=== PATIENT | female | born 1945 | race Caucasian/White ===

== ENCOUNTER 2017-11-07 14:19 | Inpatient (IN) | payer MEDICARE, OTHER ==
[~2017-11-07 14:19] MED LIST: ISOVUE-370 76%-LOCM 1 ML ONE
[2017-11-07] MEDS ORDERED: Labetalol HCl 100 MG/20 ML VIAL ONE (17:46)
--- NOTE | 2017-11-07 18:36 | CT ---
CT THORAX WITH IV CONTRAST: CT ABDOMEN AND PELVIS WITH IV CONTRAST: 11/07/2017 HISTORY: Malignancy. The patient failed dysphagia study. Altered mental status. New lung cancer finding. COMPARISON: None available. FINDINGS: THORAX: Enumerable noncalcified pulmonary nodules are seen throughout the lungs bilaterally, with a larger mass seen within the left lower lobe, measuring 5.1 cm, with a central area of decreased atten uation, which may be related to a central area of necrosis. There are enlarged, as well as increased number of mediastinal lymph nodes. The largest precarinal l ymph node measures 1.9 cm in short axis dimension, with an enlarged left paratracheal lymph node that is in the region of the AP window, measuring approximately 2.1 cm. There is also a soft tissue dens ity seen posterior to the left hilum, some of which is probably related to lymphadenopathy, in additi on to a parenchymal lung mass and a pulmonary nodule. There is a small, approximately 9 mm soft tissue nodule seen within the lateral aspect of the lower l eft breast, in addition to a smaller nodule within the more superior aspect of the right breast, whic h is difficult to characterize on CT imaging. There are also a few tiny nodules involving the left c hest, just inferomedial to the left breast, as well as the lateral left chest. There is a larger sub cutaneous nodule seen within the subcutaneous soft tissues of the upper abdomen, anterior to the leve l of the left hepatic lobe, measuring 1.8 cm. Vascular calcifications are seen in the thoracic aorta. 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 ABDOMEN AND PELVIS: There is generalized heterogeneity of the liver. There is a heterogeneous mass seen in the dome of the liver, measuring 3.9 cm, with a hypodense mass seen within the medial aspect of the right hepatic lobe, measuring 3.6 cm, with a few other smaller, subcentimeter, hypodense lesio ns in the right hepatic lobe. There is a slight nonspecific nodular area of thickening involving the lateral limb of the right adre nal gland. This may be within normal limits for the patient, as opposed to an actual adrenal nodule. A subcentimeter, owa-scyeq-vi-characterize, hypodense lesion is seen in the mid portion of the right kidney. The spleen, pancreas, left adrenal glands, and left kidney demonstrate a normal CT appearance. A Mireles catheter is present in the urinary bladder. Gas is present in the urinary bladder, likely re lated to catheterization. The uterus is small in size. Decreased attenuation is seen in the region of the endometrial canal. A tiny amount of fluid in the endometrial canal cannot be excluded, but th is is difficult to definitely determine based on CT evaluation. There is a lytic destructive lesion involving the left acetabulum and supra-acetabular region with ad jacent soft tissue density, consistent with a metastatic lesion. There is also cortical lucency and irregularity involving the subtrochanteric region of the right proximal femur, consistent with a meta static lesion involving the proximal right femur. There is a sclerotic lesion involving the right iliac bone, probably related to a prominent bone tiny nd. IMPRESSION: 1. Diffuse metastatic disease with multiple bilateral pulmonary nodules, mediastinal lymphadenopathy , hepatic lesions, and lytic lesions involving the proximal right femur and the left acetabulum and s upra-acetabular region. 2. Subcutaneous nodules, probably related to metastatic lesions as well, with a small nodular densit y within the right breast; however, this could be better evaluated with mammography. The largest sub cutaneous nodule is seen in the anterior abdomen, to the right of midline, measuring 1.8 cm. POS: [facility]
[2017-11-07] MEDS ORDERED: Sodium Chloride 0.9% 1,000 ML IV SCH (20:30)
[2017-11-07 21:24] VITALS: BMI 26.4
[2017-11-07] MEDS ORDERED: Ondansetron ODT 4 MG TAB PO PRN (23:19)
[2017-11-08] MEDS ORDERED: hydrALAZINE 20 MG/ML VIAL SLOW IVP SCH (03:45)
[2017-11-08 04:38] LABS: #Eosinphils 0.1 thou/uL (0.0-0.7); #Lymphocytes 1.9 thou/uL (1.20-3.40); #Monocytes 0.9 thou/uL (0.11-0.59); #Neutrophils 10.9 thou/uL (1.40-6.50); %Basophils 0.2 % (0.0-1.0); %Eosinophils 0.4 % (0.0-10.0); %Lymphocytes 13.8 % (21.0-51.0); %Monocytes 6.6 % (0.0-10.0); %Neutrophils 78.9 % (42.0-75.0); Hemoglobin 13.2 g/dL (12.0-16.0); Mean Corpuscular HGB CONC 33.1 g/dL (32.0-36.0); Mean Corpuscular Hemoglobin 29.6 pg (27.0-31.0); Mean Corpuscular Volume 89.4 fL (78.0-98.0); Mean Platelet Volume 6.6 fL (7.4-10.4); Platelet Count 315 thou/uL (130-400); RBC Distribution Width 12.1 % (11.5-14.5); Red Blood Cell (RBC) Count 4.47 mill/uL (4.20-5.40); White Blood Cell (WBC) Count 13.9 thou/uL (4.8-10.8)
[2017-11-08 04:48] LABS: Anion Gap 14 mmol/L (10-20); BUN (Urea Nitrogen) 16 mg/dL (9.8-20.1); Calc. Creatinine Clearance 86 mL/min (70-130); Calcium 10.9 mg/dL (7.8-10.44); Carbon Dioxide 32 mmol/L (23-31); Chloride 102 mmol/L (98-107); Estimated GFR-MDRD 89; Glucose 107 mg/dL (83-110); Sodium 145 mmol/L (136-145)
[2017-11-08 04:53] LABS: Potassium 2.5 mmol/L (3.5-5.1)
[2017-11-08] MEDS ORDERED: Potassium Chloride 40 MEQ in Sodium Chloride 0.9% 250 ML 250 ML IVPB SCH (06:00)
--- NOTE | 2017-11-08 06:36 | HP ---
CHIEF COMPLAINT: Patient transferred for possible metastatic cancer. HISTORY OF PRESENT ILLNESS: This patient is a 72-year-old female who was in generally good health an d had not seen a physician in the prior 20 years according to her . The patient's hel ped with the history because of the patient's situation. He reports that in July, she started havin g some loss of her voice in general. Subsequently, she developed some pain in her legs, indicating m ore in the thigh areas. She was able to function with this, but about 3 weeks ago, this became more severe. She stopped walking and stopped eating generally. About 1 week ago, she started developing some confusion. He took her to the [facility] Emergency Department today for seth luation. While there, the patient had a chest x-ray concerning for possible metastatic disease. She also had a CT scan of the head, also concerning for metastatic disease. The [facility] ER spoke with Dr. Daniels who recommended she be transferred to this facility. Here, the pat ient has denied any fevers, chills, nausea, vomiting, or abdominal pain, although she does have some difficulty swallowing. reports she is coughing and choking frequently when trying to eat. REVIEW OF SYSTEMS: Otherwise, difficult to obtain because of the patient's mental status. PAST MEDICAL HISTORY: None. PAST SURGICAL HISTORY: None. FAMILY HISTORY: The patient's mother of cancer. SOCIAL HISTORY: The patient quit smoking about 25 years ago, but was never a heavy smoker. MEDICATIONS: None. ALLERGIES: None. PHYSICAL EXAMINATION: VITAL SIGNS: Temperature was 97.7, pulse 85, respirations 16, O2 sat 95% on 3 liters nasal cannula. Her original BP was 168/74. GENERAL APPEARANCE: Age-appropriate female. She is in no distress. She is awake. She is alert and she is conversant. She is somewhat hard of hearing and does have a slightly altered voice which is slightly hypophonic. All this makes it a bit difficult to fully communicate with the patient. HEENT: PERRL. No OP lesions. Very dry oral mucosa. NECK: Supple and symmetric. HEART: Regular rate and rhythm without murmurs, gallops, or rubs. LUNGS: Clear to auscultation bilaterally with good chest wall expansion and air exchange. ABDOMEN: Soft, nontender, nondistended. Positive bowel sounds. No masses, no organomegaly. EXTREMITIES: Warm and dry without edema. She does appear to have some slight tenderness to palpatio n in both upper legs. NEUROLOGIC: As above. The patient is difficult to communicate, but appears to be slightly confused. IMAGING: CT scan of the abdomen and pelvis reveals diffuse metastatic disease with multiple bilatera l pulmonary nodules, mediastinal lymphadenopathy, hepatic lesions and lytic lesions involving the pro ximal right femur and left acetabulum and supra-acetabular region. There are subcutaneous nodules, p robably related to metastatic lesions as well with a small nodular density in the right breast and a subcutaneous nodule in the anterior abdomen to the right of midline measuring 1.8 cm. IMPRESSION AND PLAN: 1. The patient has apparent metastatic disease. Primary is unknown. Her CT scan at [place] appears to show some metastases to the brain as well as her CT showing metastases to multiple areas including subcutaneous tissue of liver and lungs. An MRI has been requested by Oncology and that radha l be obtained. In the interim, we will continue to treat the patient's leg pain with opioids as need ed. 2. Dysphagia. Patient failed her bedside swallowing study and this is consistent with the history t hat the patient's is given. We will go ahead and keep her n.p.o. and ask speech therapy to s ee her as well. 3. We will ask the Palliative Care Team to evaluate the patient as well. 4. The patient is currently FULL CODE and her is her surrogate decision maker who is at her bedside.
[2017-11-08] MEDS: Famotidine/PF 20 mg/2ml Vial SLOW IVP SCH ×2 (08:58→21:48)
--- NOTE | 2017-11-08 15:09 | MRI ---
MRI OF THE BRAIN WITHOUT AND WITH CONTRAST: HISTORY: Malignancy of unknown origin. COMPARISON: Chest CT 11/07/[address] of the brain 11/07/17. TECHNIQUE: Multiplanar, multisequence MR images were obtained of the brain without and with IV contrast. FINDINGS: There are scattered foci of high FLAIR signal in the subcortical and periventricular white matter, li keyur secondary to small-vessel ischemic disease. No restricted diffusion is seen. No abnormal enhan cement is seen within the brain parenchymal to suggest intraparenchymal metastatic disease. There is abnormal enhancement of the left frontal calvarium near the vertex. This measures approxima tely 2.8 cm in greatest dimension and is concerning for a calvarial metastasis. There is no evidence of hydrocephalus, intracranial hemorrhage, or extraaxial fluid collection. The expected flow voids are present. There is fluid in the bilateral mastoid air cells. The paranasal sinuses are well aerated. IMPRESSION: 1. There appears to be a metastatic lesion to the left frontal bone. This corresponds to the findin g on CT. 2. No evidence of intracranial parenchymal metastatic disease. 3. Small-vessel ischemic disease. POS: [facility]
--- NOTE | 2017-11-08 15:57 | ULT ---
BODY WALL SOFT TISSUE ULTRASOUND: 11/08/17 INDICATION: Metastatic disease, soft tissue mass on preceding CT. FINDINGS: There is a hypoechoic mass, approximately 1.7 cm in diameter at the site of concern, within the ventr al abdominal wall. Doppler evaluation does reveal mild internal flow. IMPRESSION: Hypoechoic mass, suspicious for malignancy, involves the ventral subcutaneous tissues. POS: [facility]
[2017-11-08] MEDS: Ketorolac Tromethamine 30 MG/ML VIAL IVP PRN (17:18)
--- NOTE | 2017-11-08 17:50 | PDOC.PN ---
- Subjective Encounter Start Date: 11/08/17 Encounter Start Time: 17:35 Subjective: f/u for metastatic process of unclear primary suspicious for pulmonary -: source. Work up in progress with biopsy planned. - Objective Resuscitation Status: Resuscitation Status FULL:Full Resuscitation MAR Reviewed: Yes Vital Signs & Weight: Vital Signs (12 hours) Temp Pulse Resp BP BP BP Pulse Ox 11/08/17 16:35 97.9 F 91 18 163/76 H 93 L 11/08/17 11:48 97.9 F 97 22 H 155/75 H 90 L 11/08/17 08:00 97.5 F L 94 18 146/95 H 90 L 11/08/17 07:35 97.5 F L 94 18 146/95 H 90 L Weight Weight 158 lb 8 oz I&O: 11/07/17 11/08/17 11/09/17 06:59 06:59 06:59 Intake Total 700 1250 Output Total 900 800 Balance -200 450 Result Diagrams: 11/08/17 04:03 11/08/17 04:02 Radiology Reviewed by me: Yes (MRI brain - metastatic L frontal bone lesion) Phys Exam - Physical Examination smiles, mild dysarthria HEENT: PERRLA, sclera anicteric, oral pharynx no lesions Neck: no nodes, no JVD, supple, full ROM Respiratory: no wheezing, no rales, no rhonchi, clear to auscultation bilateral Cardiovascular: RRR, no significant murmur, no rub, gallop Gastrointestinal: soft, non-tender, no distention, positive bowel sounds Musculoskeletal: no edema, pulses present Neurological: normal sensation, moves all 4 limbs Skin: no rash, normal turgor, cap refill <2 seconds Dx/Plan (1) Osteolytic lesion due to metastasis Code(s): C79.51 - SECONDARY MALIGNANT NEOPLASM OF BONE Status: Acute Comment : multiple osseous lesions in femur/pelvis, likely malignant process, work up in progress with biopsy pending (2) Pulmonary nodules Status: Acute Comment: likely malignant process (3) Hypokalemia Code(s): E87.6 - HYPOKALEMIA Status: Acute Comment: KCL replacement, serial K+ monitoring (4) Hypercalcemia Code(s): E83.52 - HYPERCALCEMIA Status: Acute Comment: Continue IVF's, serial Ca++ monitoring (5) Physical deconditioning Code(s): R53.81 - OTHER MALAISE Status: Acute Comment: PT evaluation, likely multifactorial and due to malignant process with osseous metastasis, SNF options - Plan plan discussed w/ family, PT/OT, psychologist social, DVT proph w/SCDs Continue malignant work up -: Biopsy of abd mass pending -: Pain control with Morphine Sulfate/Toradol -: Palliative care consult -: AM lab: CMP, CBC * Surgery consult for biopsy * Convert to inpt status
[2017-11-08] MEDS: hydrALAZINE 20 MG/ML VIAL SLOW IVP PRN (19:55)
--- NOTE | 2017-11-08 22:32 | CON ---
DATE OF CONSULTATION: 11/08/2017 REASON FOR CONSULTATION: Metastatic disease. HISTORY OF PRESENT ILLNESS: Ms. Interiano is a 72-year-old female who presented to the [facility] with altered mental status. She had a brain CT performed, which showed abnormal appearance of the left frontal bone and left anterior cranial fossa concerning for metastatic lesion. She also had adjacent extraaxial dural based density. She was transferred to this facility for further evaluation. A CT of the chest, abdomen, and pelvis showed innumerable noncalcified pulmonary nodules throughout both lungs. There was a larger mass in the left lower lobe. There was a destructive lesion involving the left acetabulum and supra acetabular region that there was an irregularity in the right proximal femur consistent with metastatic disease. Left lower lobe measuring 5.1 cm appeared to have some central necrosis. There were enlarged mediastinal lymph nodes. There was a soft tissue density seen in the left hilum. There was a 9-mm soft density in the left breast. A smaller nodule in the right breast, there was 1.8 cm upper abdominal nodule. She had liver lesions, one in the dome of the liver measuring 3.9 cm, another in the medial aspect of the right lobe measuring 3.6 cm. Her calcium at the mid was 11.5. She was started on IV hydration. She has had intermittent confusion over the last 3 weeks. admits that in late August early September, she began to walk with a limp and used a cane. Over the last 3 days, she has essentially become bedridden and sleeping most of the time. states that she has had extremely poor appetite over the last few weeks. Patient had an MRI of the brain, results pending. She was given morphine for pain and sedation. She remains somnolent. She does arouse, but is unable to give history appropriately answer questions. History was obtained from speaking with the in review of the medical record. Patient's last mammogram was over 12 years ago. No colonoscopy in the past. PAST MEDICAL HISTORY: None. PAST SURGICAL HISTORY: None. ALLERGIES: No known drug allergies. HOME MEDICATIONS: None. FAMILY HISTORY: Her mother at early age of unknown cancer. She had multiple siblings with cancer including renal and lung. SOCIAL HISTORY: She is , has 1 child. Lives with her spouse. Prior history of smoking, but quit over 25 years ago. REVIEW OF SYSTEMS: Unable to obtain secondary to somnolence. PHYSICAL EXAMINATION: VITAL SIGNS: Temperature is 97.9, pulse is 97, respiratory rate 22, BP is 155/ 75. She is 90% on 3 liters. GENERAL: Well-nourished female in no acute distress. HEENT: Normocephalic, atraumatic. Pupils are equal and reactive to light. NECK: Supple. CARDIOVASCULAR: Regular rate and rhythm. LUNGS: Clear. ABDOMEN: Soft, mildly tender to palpation. EXTREMITIES: No clubbing, cyanosis, or edema. SKIN: No rash. HEMATOLOGIC: No petechia or purpura. NEUROLOGICAL: Unable to assess secondary to sedation. LYMPHATIC: No palpable lymphadenopathy. BREASTS: She has a palpable nodule in her right breast. No skin appears peau d 'orange changes. PERTINENT LABORATORY DATA AND X-RAYS: Current WBCs are 13.9, hemoglobin 13.2, hematocrit 39.9, platelet count 315,000. She got 78% neutrophils, 14% lymphocytes. Sodium is 145, potassium 2.5, chloride 102, CO2 is 32, BUN is 16, creatinine 0.65, glucose is 107, calcium is 10.9. Radiology per HPI. MRI is pending. ASSESSMENT: 1. Metastatic disease involving the lung, liver, and bone. 2. Hypercalcemia, likely secondary to #1. 3. Altered mental status likely secondary to #2. 4. Hypokalemia. DISCUSSION: The patient is on IV fluids. She will have potassium replacement. She needs a tissue biopsy for diagnosis. I spoke with radiologist, he feels that the soft tissue in the epigastric area is the easiest place to obtain a biopsy. I have ordered an ultrasound, unable to currently obtain tissue from this area. We will perform a CT-guided biopsy of one of the lung masses. Radiation Oncology may be consulted for pain control. We will reassess once the patient has awoken from her sedation with her MRI. This was discussed in detail with the who agreeing to the plan. Thank you for the consult. We will follow her closely. ANNE-MARIE
[2017-11-09 06:24] LABS: #Eosinphils 0.1 thou/uL (0.0-0.7); #Lymphocytes 1.5 thou/uL (1.20-3.40); #Neutrophils 12.1 thou/uL (1.40-6.50); %Basophils 0.2 % (0.0-1.0); %Eosinophils 0.7 % (0.0-10.0); %Lymphocytes 10.4 % (21.0-51.0); %Monocytes 6.6 % (0.0-10.0); %Neutrophils 82.1 % (42.0-75.0); Hemoglobin 13.4 g/dL (12.0-16.0); Mean Corpuscular HGB CONC 31.8 g/dL (32.0-36.0); Mean Corpuscular Hemoglobin 29.3 pg (27.0-31.0); Mean Platelet Volume 6.3 fL (7.4-10.4); Platelet Count 328 thou/uL (130-400); RBC Distribution Width 12.5 % (11.5-14.5); Red Blood Cell (RBC) Count 4.57 mill/uL (4.20-5.40); White Blood Cell (WBC) Count 14.7 thou/uL (4.8-10.8)
[2017-11-09 06:36] LABS: INR-International Normal Ratio 1.3; Prothrombin Time 15.9 SEC (12.0-14.7)
[2017-11-09 06:49] LABS: ALT (SGPT) 38 U/L (8-55); AST (SGOT) 60 U/L (5-34); Albumin 2.8 g/dL (3.4-4.8); Alkaline Phosphatase 150 U/L (40-150); Anion Gap 15 mmol/L (10-20); BUN (Urea Nitrogen) 15 mg/dL (9.8-20.1); Bilirubin, Total 0.9 mg/dL (0.2-1.2); Calc. Creatinine Clearance 84 mL/min (70-130); Calcium 11.3 mg/dL (7.8-10.44); Carbon Dioxide 28 mmol/L (23-31); Chloride 105 mmol/L (98-107); Estimated GFR-MDRD 86; Globulin 3.3 g/dL (2.4-3.5); Glucose 102 mg/dL (83-110); Protein, Total 6.1 g/dL (6.0-8.3); Sodium 145 mmol/L (136-145)
[2017-11-09 06:54] LABS: Potassium 2.6 mmol/L (3.5-5.1)
[2017-11-09] MEDS: Potassium Chloride 20 MEQ in Premix Bag 1 BAG IVPB SCH ×2 (08:43→12:13)
--- NOTE | 2017-11-09 10:12 | PQF ---
CLINICAL DOCUMENTATION IMPROVEMENT CLARIFICATION FORM: ICD-10 Updated PLEASE DO AN ADDENDUM TO THE PROGRESS NOTE WITH ANY DOCUMENTATION UPDATES OR ADDITIONS AND CARRY THROUGH TO DC SUMMARY. THANK YOU. DATE: 11/09 ATTN: DR. SHADI BLACK Please exercise your independent, professional judgment in responding to the clarification form. Clinical indicators are provided on the bottom of this form for your review. Please check appropriate box(s): [ ] Encephalopathy: Type: [ ] Acute [ ] Subacute [ ] Chronic Etiology: [ ] Metabolic [ ] Toxic [ ] Unspecified [ ] Other (please specify) [ ] Other diagnosis [ x ] Unable to determine For continuity of documentation, please document condition throughout progress notes and discharge summary. Thank You. CLINICAL INDICATORS - SIGNS / SYMPTOMS / LABS ER PHYSICIAN DOCUMENTATION 11/07: RECEIVED TRANSFER FROM THE [facility] FOR AMS/ DECLINING MENTAL STATUS. PATIENT HAS HAD GRADUALLY DECLINING MENTAL STATUS OVER THE PAST FEW WEEKS. ...UNABLE TO OBTAIN PAST MEDICAL HX D/T AMS. FINAL DIAGNOSIS: METASTATIC DISEASE, AMS PHYSICIAN H&P 11/07: PT IS DIFFICULT TO COMMUNICATE WITH, BUT APPEARS SLIGHTLY CONFUSED ONCOLOGY CONSULT 11/08: ASSESSMENT: 2) HYPERCALCEMIA 3) AMS LIKELY 2/2 TO #2 CALCIUM: 10.9 - 11.3 (11/08 -) POTASSIUM: 2.5 & 2.6 (11/08 & ) RISK FACTORS: HYPERCALCEMIA METASTATIC DISEASE TO LIVER, BONES, & LUNGS W/UNKNOWN PRIMARY TREATMENTS: POTASSIUM REPLACEMENT IVF (NS 11/07) THANK YOU! Sandra (This form is maintained as a part of the permanent medical record) 2014 [employer]. All Rights Reserved Sandra Gimenez RN, BSN [email or web address] Office: [phone] [facility]
[2017-11-09] MEDS ORDERED: Lidocaine 1% PF 5 ML VIAL ONE ×2 (11:15→11:55)
[2017-11-09] MEDS: Famotidine/PF 20 mg/2ml Vial SLOW IVP SCH ×2 (12:12→21:39)
--- NOTE | 2017-11-09 12:47 | ULT ---
ULTRASOUND GUIDED VENTRAL ABDOMINAL WALL BIOPSY: CLINICAL HISTORY: Metastatic disease of indeterminate etiology. Soft tissue mass of the ventral abdominal wall is amari cted for a percutaneous biopsy. TECHNIQUE: Informed consent was obtained. The patient was escorted to the procedural suite and placed in the grier pine position. The mass of interest within the ventral abdominal subcutaneous region was localized s onographically. The ventral abdominal wall was then prepped and draped in the standard, sterile fash ion, and topical anesthesia was achieved with buffered 1% Lidocaine. A small skin incision was made, through which a 13 gauge trocar was advanced. The inner stylet was removed and was exchanged for a 14 gauge biopsy needle. Subsequently, under real-time sonography, three separate core specimens were acquired. These were submitted to the pathologist attending the procedure, Jose Feliciano, who deeme d the specimens adequate for interpretation. After specimens were deemed adequate, all devices were removed from the patient. Postprocedure imaging was performed, which revealed no evidence of complic ations. The patient tolerated the procedure well and was returned to the hospital floor in stable co ndition. IMPRESSION: Technically successful ultrasound-guided biopsy of ventral abdominal wall mass. Pathology results ar e pending. POS: [facility]
--- NOTE | 2017-11-09 13:07 | CON ---
DATE OF CONSULTATION: 11/09/2017 REQUESTING PHYSICIAN: Dr. Christiano Canela HISTORY OF PRESENT ILLNESS: This is a 72-year-old woman who has not seen any physician ove r the last 20 years. The patient apparently was in her usual state of health up until last 3-4 weeks when she reportedly developed progressive fatigue, anorexia and hoarseness according to her . The patient also developed difficulty with ambulation, walking with a limp. Over the last of 3 weeks ; however, she is intermittently confused and has been bedridden over the last several days. Workup has included a CT scan of the brain, chest, abdomen, and pelvis as well as MRI of the brain, a ll of which are suggestive of profound metastatic disease. I have been asked to evaluate the patient for biopsy of an abdominal wall mass. At the time of my evaluation, the patient is awake and alert, at bedside is her . The patient reports some pain with this mass. PAST MEDICAL HISTORY: Otherwise, unremarkable except for the recently noted metastatic disease. SURGICAL HISTORY: The patient has had no previous surgeries. SOCIAL HISTORY: The patient is and lives at home with her . She was a light smoker i n her youth. She has not smoked over the last 25-30 years. She denies any ethanol or illicit drug a buse. PREHOSPITALIZATION MEDICATIONS: None. ALLERGIES: The patient has no known drug allergies. FAMILY HISTORY: Noncontributory for this patient's age. REVIEW OF SYSTEMS: Unremarkable except for as stated in past medical history and chief complaint. PHYSICAL EXAMINATION: GENERAL: This reveals a 72-year-old normally developed woman who is otherwise coherent and interacti ve and appears stated age. The patient appears to be in no acute distress at the time of my evaluati on. VITAL SIGNS: Today includes blood pressure 186/82, pulse 110, respiratory rate is 18, temperature is 98.9 degrees Fahrenheit, oxygen saturation is 92% on room air. HEENT: Reveals normocephalic and atraumatic. Pupils are equal, round, reactive to light and accommo dation. HEART: Reveals regular rate with sinus tachycardia. No murmurs or gallops auscultated. LUNGS: Clear to auscultation bilaterally. Breathing regular and unlabored. ABDOMEN: Soft, nontender and nondistended. She has a 2 cm palpable mass in the epigastrium to the r ight of midline. This mass is freely movable. Liver and spleen are nonpalpable below costal margins . NEUROLOGIC: Reveals no focal deficits present. PERTINENT LABORATORY FINDINGS: Today includes a CBC with 14,700 white blood cells, hemoglobin and he matocrit of 13.4 and 42.0 respectively. Platelet count is 228,000. PT and INR normal at 15.9 seconds and 1.3 respectively. Metabolic profile: Sodium 145, potassium is 2.6, chloride is 105, bicarbonate 28, BUN 15, creatinine 0.67, glucose is 102. AST and ALT 60 and 3 8 respectively. CEA is elevated at 1066. I have personally reviewed the CT scan of the chest, abdomen and pelvis which are remarkable for mult iple mediastinal lymphadenopathy, left lower lobe pulmonary nodule, 3.9 and 3.6 cm liver lesions. Al so noted is 1.8 cm anterior abdominal nodule to the right of midline. There is a destructive lesion involving the right acetabulum and right femoral head. IMPRESSION: 1. Diffuse metastatic lesions. 2. A 1.8 cm anterior abdominal wall mass. PLAN: We will proceed with an incisional biopsy of the abdominal wall mass. The above findings and plan discussed with the patient and her at bedside. They both indicat ed understanding of information given. I have answered their questions. Thank you again, Dr. Canela, for allowing me the opportunity to participate in the care of this patient .
[2017-11-09] MEDS ORDERED: Polyethylene Glycol 3350 17 GM Packet PO PRN (14:14)
[2017-11-09] MEDS ORDERED: Zoledronic Acid 4 MG in Sodium Chloride 0.9% 100 ML IVPB SCH (14:15)
[2017-11-09] MEDS: Ketorolac Tromethamine 30 MG/ML VIAL IVP PRN ×2 (14:31→22:21)
--- NOTE | 2017-11-09 17:43 | PDOC.PN ---
- Subjective Encounter Start Date: 11/09/17 Encounter Start Time: 17:30 Subjective: f/u for metastatic process of unclear primary s/p abd wall biopsy today. -: Pathology pending currently. c/o general pain on current Morphine Sulfate -: and Toradol. - Objective Resuscitation Status: Resuscitation Status FULL:Full Resuscitation MAR Reviewed: Yes Vital Signs & Weight: Vital Signs (12 hours) Temp Pulse Resp BP Pulse Ox 11/09/17 12:20 91 L 11/09/17 12:00 98.4 F 109 H 18 173/85 H 91 L 11/09/17 08:00 98.9 F 110 H 18 186/82 H 92 L Weight Admit Weight 158 lb 8 oz Weight 158 lb 8 oz I&O: 11/08/17 11/09/17 11/10/17 06:59 06:59 06:59 Intake Total 700 1790 400 Output Total 900 1250 400 Balance -200 540 0 Result Diagrams: 11/09/17 06:10 11/09/17 06:10 Additional Labs: Laboratory Tests 11/08/17 11/08/17 11/08/17 04:02 04:03 15:59 WBC 13.9 H Potassium 2.5 L* Carbon Dioxide 32 H Calcium 10.9 H Carcinoembryonic Ag 1066.45 H Phys Exam - Physical Examination Constitutional: NAD HEENT: PERRLA, sclera anicteric, oral pharynx no lesions Neck: no nodes, no JVD, supple, full ROM Respiratory: no wheezing, no rales, no rhonchi, clear to auscultation bilateral S1, S2 Cardiovascular: RRR, no significant murmur, no rub, gallop Gastrointestinal: soft, non-tender, no distention, positive bowel sounds Musculoskeletal: no edema, pulses present Neurological: non-focal, normal sensation, moves all 4 limbs Psychiatric: normal affect Skin: no rash, normal turgor, cap refill <2 seconds Dx/Plan (1) Osteolytic lesion due to metastasis Code(s): C79.51 - SECONDARY MALIGNANT NEOPLASM OF BONE Status: Acute Comment : multiple osseous lesions in femur/pelvis, likely malignant process, work up in progress with biopsy pending (2) Pulmonary nodules Status: Acute Comment: likely malignant process (3) Hypokalemia Code(s): E87.6 - HYPOKALEMIA Status: Acute Comment: KCL replacement, serial K+ monitoring (4) Hypercalcemia Code(s): E83.52 - HYPERCALCEMIA Status: Acute Comment: Continue IVF's, serial Ca++ monitoring (5) Physical deconditioning Code(s): R53.81 - OTHER MALAISE Status: Acute Comment: PT evaluation, likely multifactorial and due to malignant process with osseous metastasis, SNF options - Plan plan discussed w/ family, PT/OT, director social service, DVT proph w/SCDs continue supportive measures -: Continue IVF's -: Zometa x 1 dose today -: Pain control with Morphine Sulfate IV 2mg q4h prn -: Palliative care consult * Await abd mass pathology * KCL 40meq po BID * AM lab: BMP, Mg++
[2017-11-09] MEDS: Docusate 100 MG CAP PO SCH (19:58)
[2017-11-09] MEDS ORDERED: Lorazepam 2 MG/ML VIAL SLOW IVP SCH (20:00)
[2017-11-09] MEDS ORDERED: Sodium Chloride 0.9% 1,000 ML IV SCH (20:15)
[2017-11-10] MEDS: Ketorolac Tromethamine 30 MG/ML VIAL IVP PRN ×4 (04:22→23:41)
[2017-11-10 06:17] LABS: Anion Gap 15 mmol/L (10-20); BUN (Urea Nitrogen) 15 mg/dL (9.8-20.1); Calc. Creatinine Clearance 88 mL/min (70-130); Calcium 11.4 mg/dL (7.8-10.44); Carbon Dioxide 25 mmol/L (23-31); Chloride 109 mmol/L (98-107); Estimated GFR-MDRD Greater than 90; Glucose 106 mg/dL (83-110); Magnesium 1.7 mg/dL (1.6-2.6); Sodium 146 mmol/L (136-145)
[2017-11-10] MEDS: hydrALAZINE 20 MG/ML VIAL SLOW IVP PRN (08:30)
[2017-11-10] MEDS: Docusate 100 MG CAP PO SCH ×3 (09:59→19:24)
[2017-11-10] MEDS ORDERED: Lorazepam 2 MG/ML VIAL SLOW IVP SCH ×2 (10:00→12:00)
[2017-11-10] MEDS: Famotidine/PF 20 mg/2ml Vial SLOW IVP SCH ×2 (10:25→20:46)
[2017-11-10] MEDS ORDERED: Dexamethasone 4 mg/ml Vial SLOW IVP SCH (12:00)
[2017-11-10] MEDS: Lorazepam 2 MG/ML VIAL SLOW IVP PRN ×2 (17:06→21:44)
--- NOTE | 2017-11-10 20:38 | PDOC.PN ---
- Subjective Encounter Start Date: 11/10/17 Encounter Start Time: 20:15 Subjective: f/u for diffuse metastatic process with pathology pending. Pt continues -: to clinically decline. No po intake in 24h, restless and confused. - Objective Resuscitation Status: Resuscitation Status DNR:Do Not Resuscitate MAR Reviewed: Yes Vital Signs & Weight: Vital Signs (12 hours) Temp Pulse Resp BP Pulse Ox 11/10/17 16:03 98.3 F 110 H 22 H 172/72 H 92 L 11/10/17 12:07 98.5 F 122 H 18 133/63 91 L 11/10/17 09:20 124 H 20 176/82 H Weight Admit Weight 158 lb 8 oz Weight 158 lb 8 oz I&O: 11/09/17 11/10/17 11/11/17 06:59 06:59 06:59 Intake Total 1790 1300 70 Output Total 1250 1100 425 Balance 540 200 -355 Result Diagrams: 11/09/17 06:10 11/10/17 05:29 Phys Exam - Physical Examination lethargic, no response to questions dry mucosa HEENT: oral pharynx no lesions Neck: no nodes, no JVD, supple Respiratory: no wheezing, no rales, no rhonchi, clear to auscultation bilateral tachycardic Cardiovascular: no significant murmur, no rub, gallop Gastrointestinal: soft, no distention, positive bowel sounds Musculoskeletal: no edema, pulses present lethargic, A x O x 1 Skin: no rash, normal turgor, cap refill <2 seconds Dx/Plan (1) Osteolytic lesion due to metastasis Code(s): C79.51 - SECONDARY MALIGNANT NEOPLASM OF BONE Status: Acute Comment : multiple osseous lesions in femur/pelvis, diffuse metastatic process with pathological confirmation pending, appears to be aggressive process (2) Pulmonary nodules Status: Acute Comment: likely malignant process, see above (3) Hypokalemia Code(s): E87.6 - HYPOKALEMIA Status: Acute Comment: KCL replacement, serial K+ monitoring (4) Hypercalcemia Code(s): E83.52 - HYPERCALCEMIA Status: Acute Comment: Continue IVF's, serial Ca++ monitoring (5) Physical deconditioning Code(s): R53.81 - OTHER MALAISE Status: Acute Comment: PT evaluation, likely multifactorial and due to malignant process with osseous metastasis, SNF options - Plan plan discussed w/ family, mental health social worker, DVT proph w/SCDs Discussed at length with that current clinical deterioration is -: progressing rapidly, states DNR status and understands grave -: condition and no meaningful chance of treatment or recovery -: Will continue supportive mgmt, IVF's -: Palliative care following, Hospice likely inpt vs home * Code Status DNR
[2017-11-10] MEDS: D5 1/2 NS w/40 mEq KCL 1,000 ML IV SCH (20:43)
[2017-11-10] MEDS: Dexamethasone 4 mg/ml Vial SLOW IVP SCH (20:47)
[2017-11-10] MEDS ORDERED: Lorazepam 2 MG/ML VIAL SLOW IVP PRN (22:27)
[2017-11-11] MEDS: Lorazepam 2 MG/ML VIAL SLOW IVP PRN ×3 (03:34→17:43)
[2017-11-11] MEDS ORDERED: Lorazepam 2 MG/ML VIAL SLOW IVP SCH (06:45)
[2017-11-11] MEDS: D5 1/2 NS w/40 mEq KCL 1,000 ML IV SCH ×3 (06:49→19:35)
[2017-11-11] MEDS: Dexamethasone 4 mg/ml Vial SLOW IVP SCH ×2 (08:37→22:01)
[2017-11-11] MEDS: Docusate 100 MG CAP PO SCH ×2 (10:49→21:07)
[2017-11-11] MEDS: hydrALAZINE 20 MG/ML VIAL SLOW IVP PRN (11:18)
[2017-11-11] MEDS: Famotidine/PF 20 mg/2ml Vial SLOW IVP SCH ×2 (13:26→22:02)
[2017-11-11] MEDS: Morphine 4 MG/ML VIAL SLOW IVP PRN ×2 (16:14→22:04)
--- NOTE | 2017-11-11 17:20 | PDOC.PN ---
- Subjective Encounter Start Date: 11/11/17 Encounter Start Time: 17:18 Ms. Interiano was seen today in follow-up of metastatic cancer. She is somnolent. Her and son are at the bedside. She appears comfortable. - Objective Resuscitation Status: Resuscitation Status DNR:Do Not Resuscitate MAR Reviewed: Yes Vital Signs & Weight: Vital Signs (12 hours) Temp Pulse Resp BP BP Pulse Ox 11/11/17 13:00 108 H 138/83 11/11/17 11:45 185/90 H 11/11/17 11:18 110 H 185/90 H 11/11/17 08:00 98.6 F 107 H 24 H 178/83 H 91 L Weight Admit Weight 158 lb 8 oz Weight 158 lb 8 oz I&O: 11/10/17 11/11/17 11/12/17 06:59 06:59 06:59 Intake Total 1300 70 991 Output Total 1100 425 300 Balance 200 -355 691 Result Diagrams: 11/09/17 06:10 11/10/17 05:29 Phys Exam - Physical Examination HEENT: PERRLA Respiratory: no wheezing, no rales, no rhonchi, clear to auscultation bilateral Cardiovascular: RRR, no significant murmur, no rub Gastrointestinal: soft, non-tender, positive bowel sounds Musculoskeletal: edema present (trace pedal edema) Dx/Plan (1) Metastatic cancer Code(s): C79.9 - SECONDARY MALIGNANT NEOPLASM OF UNSPECIFIED SITE Status: Acute (2) Hypercalcemia Code(s): E83.52 - HYPERCALCEMIA Status: Acute Comment: Continue IVF's, serial Ca++ monitoring (3) Osteolytic lesion due to metastasis Code(s): C79.51 - SECONDARY MALIGNANT NEOPLASM OF BONE Status: Acute Comment : multiple osseous lesions in femur/pelvis, diffuse metastatic process with pathological confirmation pending, appears to be aggressive process - Plan * Metastatic Cancer, Primary is likely from breast cancer- She is becoming more and more somnolent, and her prognosis is grim * She has been visited by Palliative Care team, and it is my understanding that her is leaning towards Hospice care * Her IV morphine dose has been increased * Continue comfort care
[2017-11-12] MEDS: Morphine 4 MG/ML VIAL SLOW IVP PRN ×5 (02:34→18:32)
[2017-11-12 08:15] VITALS: BP 137/62
[2017-11-12] MEDS: D5 1/2 NS w/40 mEq KCL 1,000 ML IV SCH (08:43)
[2017-11-12] MEDS: Dexamethasone 4 mg/ml Vial SLOW IVP SCH (09:25)
[2017-11-12] MEDS: Docusate 100 MG CAP PO SCH (09:32)
[2017-11-12] MEDS: Famotidine/PF 20 mg/2ml Vial SLOW IVP SCH (10:28)
[2017-11-12 10:58] VITALS: TEMP 97.6
--- NOTE | 2017-11-12 16:45 | PDOC.PN ---
- Subjective Encounter Start Date: 11/12/17 Encounter Start Time: 16:44 Ms. Interiano was seen today in follow-up of metastatic cancer. She is somnolent, has opened her eyes only for a brief time. - Objective Resuscitation Status: Resuscitation Status DNR:Do Not Resuscitate MAR Reviewed: Yes Vital Signs & Weight: Vital Signs (12 hours) Temp Pulse Resp BP Pulse Ox 11/12/17 08:00 97.6 F 97 12 137/62 93 L Weight Admit Weight 158 lb 8 oz Weight 158 lb 8 oz I&O: 11/11/17 11/12/17 11/13/17 06:59 06:59 06:59 Intake Total 70 991 Output Total 425 550 Balance -355 441 Result Diagrams: 11/09/17 06:10 11/10/17 05:29 Phys Exam - Physical Examination HEENT: moist MMs, sclera anicteric Respiratory: no wheezing, no rales, no rhonchi, clear to auscultation bilateral Cardiovascular: RRR, no significant murmur, no rub Gastrointestinal: soft, non-tender, positive bowel sounds Musculoskeletal: edema present + edema in the lower extremities Dx/Plan (1) Metastatic cancer Code(s): C79.9 - SECONDARY MALIGNANT NEOPLASM OF UNSPECIFIED SITE Status: Acute (2) Hypercalcemia Code(s): E83.52 - HYPERCALCEMIA Status: Acute Comment: Continue IVF's, serial Ca++ monitoring (3) Osteolytic lesion due to metastasis Code(s): C79.51 - SECONDARY MALIGNANT NEOPLASM OF BONE Status: Acute Comment : multiple osseous lesions in femur/pelvis, diffuse metastatic process with pathological confirmation pending, appears to be aggressive process - Plan * Widely Metastatic Cancer which is thought to have a breast primary- she is very somnolent, and has not responded much over the past few days * A Hospice Consult is pending * She appears comfortable, and is not in pain .
== END 2017-11-12 20:38 | disposition hospice, inpatient (51) | DRG 828 ==
LOC: ERS 14:19 → OBSVTOIN 17:53 → ONC 17:53
PROVIDERS: ADMIT Internal Medicine; ATTEND Internal Medicine
PROC: 0WBF0ZX Excision of Abdominal Wall, Open Approach, Diagnostic (ICD-10-PCS; principal; 2017-11-09)
PROC: 3E0234Z Introduction of Serum, Toxoid and Vaccine into Muscle, Percutaneous Approach (ICD-10-PCS; 2017-11-09)
DX: C80.1 Malignant (primary) neoplasm, unspecified (principal); C78.7 Secondary malignant neoplasm of liver and intrahepatic bile duct; C79.51 Secondary malignant neoplasm of bone; C78.00 Secondary malignant neoplasm of unspecified lung; E83.52 Hypercalcemia; E87.6 Hypokalemia; R41.82 Altered mental status, unspecified; R13.10 Dysphagia, unspecified; Z23 Encounter for immunization; Z66 Do not resuscitate; Z51.5 Encounter for palliative care
CPT/HCPCS: 10022; 36415; 70553; 71260; 74177; 76705; 76942; 80048; 80053; 82378; 83735; 85025; 85610; 88305; 88313; 88333; 88341; 88342; 90471; 90732; 96361; 96374; A4216; G0009; G8996-GN-CK; G8997-GN-CJ; J0360; J1100; J1885; J2001; J2060; J2270; J3480; J3489; J7050; Q0162; S0028

== ENCOUNTER 2017-11-12 20:43 | Inpatient (IN) | payer OTHER ==
[2017-11-12] MEDS ORDERED: Hyoscyamine Sulfate SL 0.125 mg Tablet SL PRN (21:30)
[2017-11-12] MEDS ORDERED: Ondansetron HCl/PF 4 MG/2 ML Vial IVP PRN (21:30)
[2017-11-12] MEDS ORDERED: Scopolamine 1.5 mg/72 hour Patch TOP PRN (21:30)
[2017-11-12] MEDS ORDERED: Morphine 10 MG/0.5 ML ORAL SYRINGE SL PRN (21:30)
[2017-11-12] MEDS: Sodium Chloride 0.9% 1,000 ML IV SCH (21:55)
[2017-11-12] MEDS ORDERED: Morphine 4 MG/ML VIAL SLOW IVP SCH (23:00)
[2017-11-12] MEDS: Lorazepam 2 MG/ML VIAL SLOW IVP PRN (23:05)
[2017-11-13] MEDS: Morphine 4 MG/ML VIAL SLOW IVP SCH ×6 (01:10→20:41)
[2017-11-13 02:18] VITALS: BMI 26.4
[2017-11-13] MEDS: Lorazepam 2 MG/ML VIAL SLOW IVP PRN ×2 (04:08→23:17)
--- NOTE | 2017-11-13 10:47 | HP ---
HISTORY OF PRESENT ILLNESS: Ms. Interiano is a 72-year-old female who presented initially to [facility] with altered mental status. CT scan was done which revealed possible brain lesion s. Chest x-ray revealed multiple metastatic looking lesions. She was transferred to [facility], evaluated and found to have metastatic disease, multiple areas including the left frontal bone of the head, left anterior cranial fossa, innumerable noncalcified pulmonary nodules throughout both lungs with a larger mass in the left lower lung and destructive lesion of the left acetabulum, and grier praacetabular region. Also, an irregular right proximal femur consistent with metastatic disease. L eft lower lobe of the lung had a 5.1 cm lesion that seemed to have some necrosis. The patient had mu ltiple mediastinal lymph nodes and soft tissue density in the left hilum. Also, a small density in t he left breast and another density in the right breast. She had liver lesions consisting of 3.9 cm a t the dome of the liver and in the right lobe of the liver a 3.6 cm lesion. Calcium was elevated at 11.5. She was hydrated and seen in evaluation by Dr. Oh for sampling of the abdominal lesion. It did come back from pathology as poorly differentiated carcinoma. Suggestively the breast adnexal str uctures were salivary glands. After significant discussion, the patient was admitted to hospice care . She is seen today by dc for certification for hospice care. Her primary diagnosis is metastatic c ancer, unknown primary. PAST MEDICAL HISTORY: Reveals the patient has not been on any medications, has not had any history o f any problems. She has not seen a doctor in the last 20 years. PAST SURGICAL HISTORY: The patient has had no surgeries. ALLERGIES: The patient has no known drug allergies. MEDICATIONS: The patient has no known medication that she takes. She was taking some Advil, Aleve a nd Tylenol. FAMILY HISTORY: Reveals, the patient's mother at an early age of unknown cancer. She has had s ome siblings with renal and lung cancer. SOCIAL HISTORY: Reveals, the patient is . She has one son who lives in [place]. Her spouse li ves with her. She stopped smoking over 25 years ago. REVIEW OF SYSTEMS: Unremarkable, except for history of a slow decline over the last 2 weeks with ini tially left hip pain and then poor appetite and then extreme fatigue and malaise. PHYSICAL EXAMINATION: GENERAL: This is an elderly white female who looks older than her stated age. HEENT: Reveals normocephalic, nontraumatic cranium. Nose and throat are very dry. Pupils are not c hecked because the patient is resting. The family did not want to awaken her. NECK: Supple. No masses, nodes or bruits are felt or heard. LUNGS: Chest is clear to auscultation. No rales, no rhonchi, no wheezes are heard. Occasional uppe r airway breath sounds are noted that seem to clear with cough. HEART: Reveals a regular rate and rhythm without murmurs, gallops or rubs. ABDOMEN: Soft, nontender. Normal bowel sounds are noted. I did not undress her to see her surgical biopsy site. : Deferred. Imreles catheter is in place with clear urine. EXTREMITIES: Reveal no clubbing, cyanosis or edema. The patient has no significant rashes. NEUROLOGIC: The patient is basically sedated with morphine. Breast exam was not done, but the patie nt was noted to have a palpable nodule in the right breast from previous exams. ASSESSMENT: 1. 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 2. Hypercalcemia, most likely secondary to her metastatic bone. 3. Altered mental status most likely secondary to lung metastasis. 4. Hypokalemia. 5. Pain management. PLAN: 1. The patient has been moved to hospice. The patient's continues to want low-grade IV rate , presently is at 30. 2. We will continue meds. The patient has pain management basically with morphine and with Ativan. Her nausea is better managed with Zofran and her witness of the secretions will be managed with scop olamine patches. This patient is certified for hospice care under the diagnosis of metastatic poorly differentiated ad enocarcinoma with multiple sites of metastasis. If this patient's present illness continues on its normal course, then this patient's life expectancy is just a few days.
[2017-11-13 21:26] VITALS: BP 126/89
[2017-11-13] MEDS: Sodium Chloride 0.9% 1,000 ML IV SCH (21:29)
[2017-11-14] MEDS: Morphine 4 MG/ML VIAL SLOW IVP SCH ×6 (01:06→20:07)
[2017-11-14] MEDS: Lorazepam 2 MG/ML VIAL SLOW IVP PRN ×3 (08:27→19:20)
--- NOTE | 2017-11-14 09:49 | PRG ---
DATE OF SERVICE: 11/14/2017 HISTORY OF PRESENT ILLNESS: Ms. Interiano is a very pleasant 72-year-old white female that presented to [facility] with altered mental status. CT scan revealed multiple brain lesions an d she was transferred to the oncology section of [facility]. She was found to have multiple metastat ic lesions including left frontal bone of the head, left anterior cranial fossa, multiple pulmonary n odules both lungs larger mass in the lower lung, destruction of lesion left acetabulum and the femur and super acetabular region. She also had irregular right proximal femur consistent with metastatic disease. She had multiple mediastinal lymph nodes and soft tissue density in the left hilum, densiti es in the right breast and liver lesions. She was admitted to hospice for palliative care. SUBJECTIVE: The patient is basically nonvocal and comatose. Her states occasionally she get s a little restless and she has morphine which works well for her. Her pulse has gone up. Her respi ratory status is slightly increased. He feels like she is under good control for her pain. PHYSICAL EXAMINATION: GENERAL: Reveals a well-developed, well-nourished, somewhat lethargic white female in no apparent di stress at this time. HEENT: Reveals normocephalic, nontraumatic cranium. Pupils are equally round. Nose and throat are dry. NECK: Supple, without mass, nodes or bruits. LUNGS: Chest is distant, but clear. No rales, rhonchi or wheezes are heard. CARDIOVASCULAR: Reveals a regular rate and rhythm. ABDOMEN: Soft, nontender with normal bowel sounds. : Mireles catheter is in place with clear urine. EXTREMITIES: Reveal no clubbing, cyanosis with trace edema. NEUROLOGIC: The patient has been sedated with morphine and Ativan. IMPRESSION: 1. Multiple metastatic lesions of a poorly differentiated carcinoma involving lung, liver, bone. breasts and brain. 2. Increased respiratory status. 3. Lethargy secondary to her morphine and Ativan. 4. Pain management. PLAN: The patient seems to be doing well, is well controlled with pain on her morphine and Ativan. We will continue that. Her is still persistent about keeping an IV in another day. We will watch for fluid overload. This patient is certified for hospice care with a diagnosis of metastatic poorly differentiated adeno carcinoma with multiple sites of metastasis. The patient's prognosis is poor.
[2017-11-15] MEDS: Morphine 4 MG/ML VIAL SLOW IVP SCH ×7 (00:19→20:15)
--- NOTE | 2017-11-15 14:09 | PRG ---
DATE OF ADMISSION: 11/12/2017 DATE OF SERVICE: 11/15/2013 HISTORY OF PRESENT ILLNESS: Ms. Interiano is a very pleasant 72-year-old white female that presented to [facility] with altered mental status. CT scan revealed multiple brain lesions. She was transferred to Oncology section at [facility]. On evaluation here, she had multiple metastat ic lesions at the left frontal bone of the head and left anterior cranial fossa, multiple pulmonary n odules in both lungs, larger mass in the lower lung, destructive lesion metastasis to the left acetab ulum and the femur. She also had irregular right proximal femur which was consistent to metastatic d isease. She has multiple mediastinal lymph nodes and soft tissue density in the left hilum, densitie s in the right breast, and liver lesions. Patient's family decided that she needed palliative care. She was admitted to [facility]. SUBJECTIVE: The patient is lethargic and comatose. She basically is nonvocal. Her states t hat she is restless at the time that her pain medication wears off. She would like to have the dose either increase a little bit or increase of frequency. PHYSICAL EXAMINATION: VITAL SIGNS: Reveals pulse this morning is 110, respirations 20, O2 sat 88% on 4 liters, temperature 99.7. Blood pressure not being done. GENERAL: This is a well-developed, older than stated age white female, in no apparent distress at th is time. She actually had some morphine about 20 minutes ago. HEENT: Nose, throat and mouth are somewhat dry. NECK: Supple. No mass, nodes or bruits are evident. CHEST: Sounds are distant, but clear. No rales are heard today. No rhonchi or wheezes are heard. CARDIOVASCULAR: Heart reveals a regular rate and rhythm. No murmurs, gallops or rubs are noted. ABDOMEN: Soft and nontender. Bowel sounds are slow. GENITOURINARY: Mireles catheter is in place. EXTREMITIES: Reveal no clubbing or cyanosis. There is still some trace edema. NEUROLOGIC: The patient is sedated with morphine and Ativan. IMPRESSION: 1. Poorly differentiated carcinoma involving the lungs, liver, bone, brain, and breast. These are m ultiple metastatic lesions. 2. Lethargy secondary to her morphine and Ativan. 3. Pain management. PLAN: 1. The patient will be continued on her present medication course. We talked to nurse about ant xiao her morphine and Ativan scheduling, so that she does not run out of medications. 2. Continue to make her pain free as possible. This patient's diagnosis if it continues as present rate and usual course, then the patient's prognos is is very poor over the next couple of days.
[2017-11-15] MEDS: Lorazepam 2 MG/ML VIAL SLOW IVP SCH (17:44)
[2017-11-16] MEDS: Morphine 4 MG/ML VIAL SLOW IVP SCH ×4 (03:57→08:41)
[2017-11-16] MEDS: Lorazepam 2 MG/ML VIAL SLOW IVP SCH ×2 (06:12)
[2017-11-16 07:20] VITALS: TEMP 100.5
--- NOTE | 2017-11-16 13:39 | DS ---
DATE OF ADMISSION: 11/12/2017 DATE OF : 11/16/2017 Ms. Interiano is a very pleasant 72-year-old white female that presented to [facility] with altered mental status. CT scan revealed multiple brain lesions. So, she was transferred to On cology section at [facility]. She was evaluated here and found to have multiple metastatic lesions in her head, pulmonary, lungs, left acetabular proximal femur; multiple metastatic lymph node s, left hilum, right breast, and the liver. [facility] was consulted and placed on palliative care. She was started on hospice care and made comfortable. Last night, approximately 02:00, she h ad an apneic spell, but recovered. This morning at 08:08, the patient was found to be unresponsive w ithout respirations, without pulse, without any reflexes. She was pronounced . I was there with in 20 minutes and did talk with and consoled the , Mr. Interiano. She is without vital signs and [facility] her body.
== END 2017-11-16 08:08 | disposition expired | DRG 951 ==
LOC: ONC 20:43
PROVIDERS: ADMIT Family Medicine; ATTEND Family Medicine
DX: Z51.5 Encounter for palliative care (principal); C79.31 Secondary malignant neoplasm of brain; C78.7 Secondary malignant neoplasm of liver and intrahepatic bile duct; C79.51 Secondary malignant neoplasm of bone; C78.00 Secondary malignant neoplasm of unspecified lung; C79.81 Secondary malignant neoplasm of breast; C80.1 Malignant (primary) neoplasm, unspecified; E83.52 Hypercalcemia; E87.6 Hypokalemia; G89.3 Neoplasm related pain (acute) (chronic)
CPT/HCPCS: A4216; J2060; J2270